=== PATIENT | female | born 1925 | race Caucasian/White ===

== ENCOUNTER 2016-04-23 12:07 | Emergency (ER) | payer OTHER, BC ==
[~2016-04-23] VITALS: Ht 160 cm; Wt 59.0 kg
[2016-04-23] MEDS ORDERED: NAMENDA 10 MG T10 MG PO (12:11)
[2016-04-23] MEDS ORDERED: METOPROLOL SUCC50 MG PO (12:11)
[2016-04-23] MEDS ORDERED: ULTRAM50 MG PO (14:09)
[2016-04-23 14:13] VITALS: BP 114/78
== END 2016-04-23 14:14 | disposition home or self-care (01) ==
LOC: ER 12:07
DX: S32.019A Unspecified fracture of first lumbar vertebra, initial encounter for closed fracture (principal); W06.XXXA Fall from bed, initial encounter; Y93.89 Activity, other specified; Y92.89 Other specified places as the place of occurrence of the external cause; Y99.8 Other external cause status; Z98.890 Other specified postprocedural states